=== PATIENT | female | born 1980 | race Caucasian/White ===

== ENCOUNTER 2020-10-26 19:47 | Emergency (ER) | payer BC, OTHER ==
[2020-10-26] MEDS ORDERED: Sodium Chloride 0.9% 1,000 ML IV SCH (20:30)
--- NOTE | 2020-10-26 20:38 | EDM.PDOC ---
ED HPI GENERAL MEDICAL PROBLEM - General Chief Complaint: Abdominal Pain Stated Complaint: RIGHT SIDE PAIN Time Seen by Provider: 10/26/20 19:57 Source of Information: Reports: Patient History Limitations: Reports: No Limitations - History of Present Illness INITIAL COMMENTS - FREE TEXT/NARRATIVE: Mrs. Malin is a very pleasant 39-year-old woman who now presents to the ED with 2 days of [id number] crampy right upper quadrant abdominal pain that sometimes radiates down to her lower right abdomen and through to her back, although she states that the radiation is vague and she is not really sure about it. She has not identified any modifiers to her pain. She has had some nausea, but no vomiting, constipation, diarrhea, or urinary symptoms. No prior similar symptoms. The patient states that she took some Flexeril last night, which helped her to sleep, but did not affect her pain at all. The patient states that she last ate a sandwich from [email or web address] around 16:00 this afternoon, and while it did not increase her pain, she states that about an hour later she felt more nauseated than previously. Here in the ED, patient is found to be hemodynamically stable, afebrile, saturating 99% on room air. Prior to 2 days ago, the patient denies having a recent fever, chills, sore throat, ear pain, nasal or sinus congestion, cough, dyspnea, chest pain, palpitations, nausea, vomiting, constipation, diarrhea, abdominal pain, urinary symptoms, recent weight gain or weight loss, recent bloody bowel movements or black bowel movements, recent joint aches, headaches, or rashes. The patient's PCP is Katie Krause NP. She already received an influenza vaccine this season. Right Upper Abdomen Pain Score (Numeric/FACES): 7 - Related Data Allergies Allergy/AdvReac Type Severity Reaction Status Date / Time morphine Allergy Anxiety Verified 10/26/20 19:54 Penicillins Allergy Rash Verified 10/26/20 19:54 Home Meds: Home Meds Albuterol [Ventolin HFA] 2 puff INH Q4H PRN 10/26/20 [History] Cetirizine HCl [Zyrtec] 10 mg PO DAILY 10/26/20 [History] Cyclobenzaprine [Flexeril] 10 mg PO DAILY PRN 10/26/20 [History] DULoxetine [Cymbalta] 60 mg PO DAILY 10/26/20 [History] Fluticasone/Salmeterol [Advair 250-50] 1 puff IH BID 10/26/20 [History] Gabapentin [Neurontin] 400 mg PO TID 10/26/20 [History] Levothyroxine 25 mcg PO ACBREAKFAST 10/26/20 [History] Past Medical History HEENT History: Reports: Allergic Rhinitis Respiratory History: Reports: Asthma (PFT-proven) Psychiatric History: Reports: Depression, Other (See Below) (Fibromyalgia) Endocrine/Metabolic History: Reports: Hypothyroidism - Past Surgical History Female Surgical History: Reports: Tubal Ligation Social & Family History - Tobacco Use Tobacco Use Status *Q: Former Tobacco User Years of Tobacco use: 4 Packs/Tins Daily: 2 Month/Year Tobacco Last Used: Quit 1995 - Caffeine Use Caffeine Use: Reports: None - Alcohol Use Alcohol Use History: No - Recreational Drug Use Recreational Drug Use: Yes Drug Use in Last 12 Months: No Recreational Drug Type: Reports: Marijuana/Hashish (last smoked around 2016) - Living Situation & Occupation Living situation: Reports: , with Spouse, with Family (17 yr old son) 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 ED EXAM, GI/ABD - Physical Exam Exam: See Below Exam Limited By: No Limitations General Appearance: Alert, WD/WN, No Apparent Distress Eyes: Bilateral: Normal Appearance, EOMI Ears: Normal External Exam, Hearing Grossly Normal Nose: Normal Inspection Throat/Mouth: Normal Inspection, Normal Lips, Normal Voice, No Airway Compromise Head: Atraumatic, Normocephalic Neck: Normal Inspection, Full Range of Motion Respiratory/Chest: No Respiratory Distress, Lungs Clear, Normal Breath Sounds, No Accessory Muscle Use Cardiovascular: Normal Peripheral Pulses, Regular Rate, Rhythm, No Edema, No Gallop, No JVD, No Murmur, No Rub GI/Abdominal Exam: Normal Bowel Sounds, Soft, No Organomegaly, No Distention, No Abnormal Bruit, No Mass, Tender (Mild, right upper quadrant only, with no tenderness elsewhere. Montesinos's sign absent.) Back Exam: Normal Inspection, Full Range of Motion. No: CVA Tenderness (L), CVA Tenderness (R) Extremities: Normal Inspection, Normal Range of Motion, No Pedal Edema, Normal Capillary Refill Neurological: Alert, Oriented, Normal Cognition, No Motor/Sensory Deficits Psychiatric: Anxious Skin Exam: Warm, Dry, Intact, Normal Color, No Rash Course - Vital Signs Last Recorded V/S: Last Vital Signs Temp 36.2 C 10/26/20 19:55 Pulse 69 10/26/20 19:55 Resp 16 10/26/20 19:55 BP 127/68 10/26/20 19:55 Pulse Ox 99 10/26/20 19:55 - Orders/Labs/Meds Orders: Active Orders 24 hr Category Date Time Status Abdomen Pelvis w Cont [CT] Stat Exams 10/26/20 20:23 Taken Sodium Chloride 0.9% [Normal Saline] 1,000 ml Med 10/26/20 20:30 Active IV ASDIRECTED Medication Orders Sodium Chloride (Normal Saline) 1,000 mls @ 150 mls/hr IV ASDIRECTED SONIA Last Admin: 10/26/20 20:46 Dose: 150 mls/hr Documented by: SLIM Labs: Laboratory Tests 10/26/20 10/26/20 10/26/20 Range/Units 20:41 20:41 20:41 WBC 8.30 (3.98-10.04) K/mm3 RBC 4.71 (3.98-5.22) M/mm3 Hgb 13.8 (11.2-15.7) gm/dl Hct 42.2 (34.1-44.9) % MCV 89.6 (79.4-94.8) fl MCH 29.3 (25.6-32.2) pg MCHC 32.7 (32.2-35.5) g/dl RDW Std Deviation 41.5 (36.4-46.3) fL Plt Count 292 (182-369) K/mm3 MPV 9.4 (9.4-12.3) fl Neutrophils % (Manual) 66 H (40-60) % Band Neutrophils % 0 (0-10) % Lymphocytes % (Manual) 22 (20-40) % Atypical Lymphs % 0 % Monocytes % (Manual) 8 (2-10) % Eosinophils % (Manual) 4 (0.7-5.8) % Basophils % (Manual) 0 L (0.1-1.2) Platelet Estimate Adequate RBC Morph Comment Normal Sodium 137 (136-145) mEq/L Potassium 3.6 (3.5-5.1) mEq/L Chloride 102 (98-107) mEq/L Carbon Dioxide 28 (21-32) mEq/L Anion Gap 10.6 (5-15) BUN 12 (7-18) mg/dL Creatinine 0.8 (0.55-1.02) mg/dL Est Cr Clr Drug Dosing 84.95 mL/min Estimated GFR (MDRD) > 60 (>60) mL/min BUN/Creatinine Ratio 15.0 (14-18) Glucose 91 (74-106) mg/dL Calcium 9.1 (8.5-10.1) mg/dL Total Bilirubin 0.3 (0.2-1.0) mg/dL AST 21 (15-37) U/L ALT 22 (14-59) U/L Alkaline Phosphatase 65 (46-116) U/L Total Protein 7.7 (6.4-8.2) g/dl Albumin 4.2 (3.4-5.0) g/dl Globulin 3.5 gm/dL Albumin/Globulin Ratio 1.2 (1-2) Lipase 60 L (73-393) U/L HCG, Quant 1.0 mIU/mL Meds: Medications Generic Name Dose Route Start Last Admin Trade Name Freq PRN Reason Stop Dose Admin Sodium Chloride 1,000 mls @ 150 mls/hr 10/26/20 20:30 10/26/20 20:46 Normal Saline IV 150 mls/hr ASDIRECTED SONIA Administration Discontinued Medications Generic Name Dose Route Start Last Admin Trade Name Madan PRN Reason Stop Dose Admin Diatrizoate Meglum/Diatrizoate Sod 90 ml 10/26/20 21:39 10/26/20 21:55 Gastrografin 37% PO 10/26/20 21:40 90 ml ONETIME ONE Administration Iopamidol 100 ml 10/26/20 21:39 10/26/20 21:55 Isovue-300 (61%) IVPUSH 10/26/20 21:40 100 ml ONETIME ONE Administration Sodium Chloride 10 ml 10/26/20 21:39 10/26/20 21:55 Saline Flush FLUSH 10/26/20 21:40 10 ml ONETIME ONE Administration - Re-Assessments/Exams Free Text/Narrative Re-Assessment/Exam: 10/26/20 20:25 The patient's presentation is relatively subtle, but most consistent with acute cholecystitis. We discussed this at length. Since the patient last ate at 16:00, we could perform an ultrasound of the right upper quadrant if the patient were willing to wait a couple of hours. She is not, but agreed to proceed with blood work and a CT of the abdomen and pelvis with oral and IV contrast. She is concerned that her symptoms may be due to her fibromyalgia. I explained that we would not expect to find any abnormalities on a CT scan related to fibromyalgia, but that the ultimate purpose of an emergency CT scan is not necessarily to make a diagnosis, but to rule out an emergency. The patient seems to understand that. She declined an offer for both pain medication and anti-nausea medication at this time. 10/26/20 21:40 The patient's CBC, CMP, lipase, and quantitative hCG are all within normal limits. 10/26/20 22:10 CT of the abdomen and pelvis with oral and IV contrast is read by vRciarra as: 1. No acute intra-abdominal pathology is identified. Specifically, the gallbladder has an unremarkable CT appearance. 2. There is a rather large volume of stool in the colon, and constipation should be ruled out clinically. 10/26/20 22:14 Test results discussed with the patient. As above, today's work-up is completely unremarkable, and does not explain the cause of her symptoms, however, there does not appear to be anything serious going on. I will discharge her home. If her symptoms persist, she is to follow-up with her PCP to arrange for an outpatient ultrasound of the right upper quadrant and HIDA scan. Departure - Departure Time of Disposition: 22:14 Disposition: Home, Self-Care 01 Condition: Good Clinical Impression: Right upper quadrant abdominal pain of unknown etiology - Discharge Information *PRESCRIPTION DRUG MONITORING PROGRAM REVIEWED*: Not Applicable *COPY OF PRESCRIPTION DRUG MONITORING REPORT IN PATIENT TIFFANIE: Not Applicable Referrals: Katie Krause NP [Primary Care Provider] - Forms: ED Department Discharge Additional Instructions: You were seen in the emergency room for 2 days of waxing and waning upper right abdominal pain, with nausea. Work-up in the ER included several blood tests and a CT of your abdomen and pelvis with oral and IV contrast. Your entire work-up was unremarkable, and does not explain the cause of your symptoms. If your symptoms persist, we recommend that you follow-up with your PCP, Katie Krause NP, to arrange for an outpatient ultrasound of your right upper quadrant and a HIDA scan. If any other problems, please do not hesitate to return to the ER. Sepsis Event Note (ED) - Evaluation Sepsis Screening Result: No Definite Risk - Focused Exam Vital Signs: Vital Signs Temp Pulse Resp BP Pulse Ox 10/26/20 19:55 36.2 C 69 16 127/68 99 - My Orders Last 24 Hours: My Active Orders 10/26/20 20:23 Abdomen Pelvis w Cont [CT] Stat 10/26/20 20:30 Sodium Chloride 0.9% [Normal Saline] 1,000 ml IV ASDIRECTED - Assessment/Plan Last 24 Hours: My Active Orders 10/26/20 20:23 Abdomen Pelvis w Cont [CT] Stat 10/26/20 20:30 Sodium Chloride 0.9% [Normal Saline] 1,000 ml IV ASDIRECTED
[2020-10-26] MEDS ORDERED: Sodium Chloride 0.9% 10 ML Syringe FLUSH ONE (21:39)
[2020-10-26] MEDS ORDERED: Iopamidol 612 MG/ML 100 ML Bottle IVPUSH ONE (21:39)
[2020-10-26] MEDS ORDERED: Diatrizoate Meglumine/Diatrizoate Sodium 37% 120 ML Bottle PO ONE (21:39)
--- NOTE | 2020-10-27 14:30 | CT ---
CT abdomen and pelvis Technique: Multiple axial sections were obtained from above the dome of the diaphragm inferiorly through the pubic symphysis. Intravenous contrast and oral contrast was utilized. Delayed images were also obtained to the bladder. Reconstructed coronal and sagittal images were obtained. Findings: Visualized lung bases show nothing acute. Liver contains no focal parenchymal abnormality. Gallbladder contains no calcified gallstones. Spleen appears normal. Adrenal glands show no nodule. Pancreas is within normal limits. Kidneys show symmetric contrast enhancement with no hydronephrosis or mass. Aorta shows no aneurysm. No retroperitoneal adenopathy or mesenteric abnormalities are appreciated. No pelvic mass or adenopathy is appreciated. No appendix is definitely visualized. Slight increased stool is noted throughout the colon. No free fluid or inflammatory change is appreciated. Impression: 1. Slight increased stool throughout the colon. 2. Nothing acute is identified on CT study of the abdomen and pelvis. Diagnostic code #2 I agree with preliminary report from [facility], finalized on 10/26/20, 11:07 PM [employer]
== END 2020-10-26 22:26 | disposition home or self-care (01) ==
LOC: JD.ED 19:47
DX: R10.11 Right upper quadrant pain (principal); J45.909 Unspecified asthma, uncomplicated; F32.9 Major depressive disorder, single episode, unspecified; E03.9 Hypothyroidism, unspecified; Z88.5 Allergy status to narcotic agent; Z88.0 Allergy status to penicillin; Z79.899 Other long term (current) drug therapy; Z87.891 Personal history of nicotine dependence
CPT/HCPCS: 36415; 74177; 80053; 83690; 84702; 85007; 85027; 99284; J7030; Q9963; Q9967